=== PATIENT | female | born 1955 | race African-American/Black ===

== ENCOUNTER 2017-11-17 06:22 | Emergency (ER) | payer OTHER, SELFPAY ==
[2017-11-17 07:17] LABS: ALT (SGPT) 13 U/L (8-55); AST (SGOT) 18 U/L (5-34); Alkaline Phosphatase 123 U/L (40-150); Anion Gap 14 mmol/L (10-20); BUN (Urea Nitrogen) 9 mg/dL (9.8-20.1); Bilirubin, Total 0.4 mg/dL (0.2-1.2); Calc. Creatinine Clearance 0 mL/min (70-130); Calcium 9.6 mg/dL (7.8-10.44); Carbon Dioxide 24 mmol/L (23-31); Chloride 109 mmol/L (98-107); Estimated GFR-MDRD 62; Globulin 3.1 g/dL (2.4-3.5); Glucose 119 mg/dL (80-115); Lipase 24 U/L (8-78); Potassium 3.9 mmol/L (3.5-5.1); Protein, Total 7.1 g/dL (6.0-8.3); Sodium 143 mmol/L (136-145)
[2017-11-17 07:18] LABS: #Basophils 0.1 thou/uL (0.0-0.2); #Eosinphils 0.3 thou/uL (0.0-0.7); #Lymphocytes 1.9 thou/uL (1.20-3.40); #Monocytes 0.6 thou/uL (0.11-0.59); #Neutrophils 3.3 thou/uL (1.40-6.50); %Eosinophils 5.2 % (0.0-10.0); %Lymphocytes 30.8 % (21.0-51.0); %Monocytes 9.4 % (0.0-10.0); %Neutrophils 52.6 % (42.0-75.0); Hemoglobin 13.2 g/dL (12.0-16.0); Mean Corpuscular HGB CONC 34.5 g/dL (32.0-36.0); Mean Corpuscular Hemoglobin 25.7 pg (27.0-31.0); Mean Corpuscular Volume 74.6 fL (78.0-98.0); Platelet Count 303 thou/uL (130-400); RBC Distribution Width 13.6 % (11.5-14.5); Red Blood Cell (RBC) Count 5.15 mill/uL (4.20-5.40); White Blood Cell (WBC) Count 6.2 thou/uL (4.8-10.8)
[2017-11-17 07:19] LABS: CKMB 1.1 ng/mL (0-6.6); Troponin I Less than 0.010 ng/mL (< 0.028)
[2017-11-17 07:38] LABS: PLT Morphology Comment Appears Adequate; RBC Morphology Normal
[2017-11-17] MEDS ORDERED: Famotidine In NaCl 20 mg/50 ml Premix Bag ONE (07:40)
[2017-11-17 09:34] LABS: Troponin I Less than 0.010 ng/mL (< 0.028)
--- NOTE | 2017-11-17 20:11 | RAD ---
AP PORTABLE CHEST: 11/17/2017 0638 HOURS COMPARISON: None. FINDINGS: The heart is normal in size for the portable technique and body habitus. there is no congestive may ge or pleural effusion. The lungs are clear. Abundant bridging osteophytes are seen in the mid to u pper T-spine. Degenerative changes are seen in each AC joint, and degenerative change is present in the right glenohumeral joint. IMPRESSION: No acute thoracic finding. POS: HOME
--- NOTE | 2017-11-17 20:14 | RAD ---
PORTABLE LATERAL CHEST: 11/17/2017 0716 HOURS FINDINGS: Bridging osteophytes and ossified anterior longitudinal ligament were findings typical of diffuse idi opathic skeletal hyperostosis (DISH). No fracture or disk space narrowing is seen. IMPRESSION: Degenerative changes, as noted. POS: HOME
== END 2017-11-17 10:04 | disposition home or self-care (01) ==
LOC: BURERS 06:22
DX: R07.9 Chest pain, unspecified (principal); E03.9 Hypothyroidism, unspecified; K21.9 Gastro-esophageal reflux disease without esophagitis; E78.5 Hyperlipidemia, unspecified; I10 Essential (primary) hypertension; Z79.899 Other long term (current) drug therapy
CPT/HCPCS: 36415; 71045; 80053; 82553; 83690; 84484; 85025; 93005; 96374

== ENCOUNTER 2018-10-28 13:01 | Emergency (ER) | payer OTHER, SELFPAY | END 2018-10-28 13:28 | disposition home or self-care (01) | LOC: BURERS 13:01 | DX: M54.41 Lumbago with sciatica, right side (principal); I10 Essential (primary) hypertension; E03.9 Hypothyroidism, unspecified; E78.5 Hyperlipidemia, unspecified; Z79.899 Other long term (current) drug therapy; K21.9 Gastro-esophageal reflux disease without esophagitis | CPT/HCPCS: 99283 ==

== ENCOUNTER 2018-10-29 09:53 | Emergency (ER) | payer SELFPAY ==
[2018-10-29] MEDS ORDERED: Ibuprofen 800 MG TAB ONE (10:58)
[2018-10-29] MEDS ORDERED: HYDROcodone/Acetaminophen 10/325 mg Tablet ONE (10:58)
--- NOTE | 2018-10-29 13:30 | CT ---
CT LUMBAR SPINE: 10/29/2018 HISTORY/TECHNIQUE: A noncontrast CT was done for evaluation of back pain. FINDINGS: Multilevel degenerative disk disease is present, to some degree, at all lumbar levels. L1-L2, L3-L4, and L5-S1 seem prominently affected, but all levels are. There is some sclerosis in the inferior cordero lf of L1 that is probably secondary to the degenerative change. While there is some mild loss of mohsen dosis, I do not see any bone destructive lesion, and no compression fracture is evident. Findings by level follow: T12-L1: No acute findings. L1-L2: Abundant osteophytes, but the neural foramina seem patent. L2-L3: Abundant osteophytes. No gross neural impingement identified. Facet overgrowth and arthriti s present. L3-L4: A somewhat concentrically bulging degenerated disk with some prominent facet overgrowth and m ild ligamentous hypertrophy. There is a very slight degree of central canal stenosis. It is difficu lt to assess any possibility of neural impingement at this level. An MRI would be needed for such. L4-L5: Right foraminal narrowing due to osteophyte or disk osteophyte complex laterally. The centra l canal seems patent. L5-S1: Facet arthritis prominent. Probably no gross neural impingement. IMPRESSION: 1. Multilevel degenerative disk disease and facet changes as noted. 2. No evidence of compression fracture. POS: [facility]
== END 2018-10-29 11:03 | disposition home or self-care (01) ==
LOC: BURERS 09:53
DX: M51.36 Other intervertebral disc degeneration, lumbar region (principal); M54.41 Lumbago with sciatica, right side; I10 Essential (primary) hypertension; E78.5 Hyperlipidemia, unspecified; E03.9 Hypothyroidism, unspecified; K21.9 Gastro-esophageal reflux disease without esophagitis; Z79.899 Other long term (current) drug therapy
CPT/HCPCS: 72131

== ENCOUNTER 2018-12-14 14:46 | Emergency (ER) | payer SELFPAY ==
[2018-12-14] MEDS ORDERED: Ketorolac Tromethamine 60 MG/2 ML VIAL ONE (15:40)
[2018-12-14] MEDS ORDERED: Acetaminophen/Codeine 30-300mg Tablet ONE (15:40)
== END 2018-12-14 15:49 | disposition home or self-care (01) ==
LOC: BURERS 14:46
DX: M54.5 Low back pain (principal); E03.9 Hypothyroidism, unspecified; K21.9 Gastro-esophageal reflux disease without esophagitis; E78.5 Hyperlipidemia, unspecified; I10 Essential (primary) hypertension; Z79.899 Other long term (current) drug therapy
CPT/HCPCS: 96372; 99283; J1885

== ENCOUNTER 2019-01-20 11:14 | Outpatient (CLI) | payer MEDICARE ==
--- NOTE | 2019-01-20 17:29 | RAD ---
RIGHT HIP TWO VIEWS: 01/20/19 No fracture, dislocation, or joint space narrowing was seen. There are no obvious causes for hip pain . The adjacent pubic ring appears intact. The right SI joint was symmetrical with respect to the left . Degenerative changes are seen at the lumbosacral junction. IMPRESSION: No acute findings. POS: HOME
--- NOTE | 2019-01-20 17:31 | RAD ---
LEFT HIP TWO VIEWS: 01/20/19 No acute fracture was seen. There is no dislocation or joint space narrowing. Irregularity of the lesser trochanter suggests an old injury here. The adjacent pubic ring appears in tact. The left SI joint showed no widening. Severe degenerative changes are suggested in the lower saqib mbar spine. IMPRESSION: No acute bony finding. POS: HOME
== END 2019-01-20 11:15 | disposition home or self-care (01) ==
LOC: BURRAD 11:14
PROVIDERS: ATTEND Family Medicine
DX: M25.551 Pain in right hip (principal); M25.552 Pain in left hip

== ENCOUNTER 2020-06-14 09:29 | Outpatient (CLI) | payer MEDICARE ==
--- NOTE | 2020-06-14 11:29 | RAD ---
Exam:2 views right hip HISTORY: Pain. COMPARISON: 01/20/2019 FINDINGS: Stable mild to moderate loss of joint space height. No fractures or malalignment. Visualize d sacrum and bony pelvis are intact. There is vacuum joint phenomenon in the right SI joint. Vacuum disc phenomenon at L4-L5 and L5-S1. IMPRESSION: Chronic changes as above.
== END 2020-06-14 09:30 | disposition home or self-care (01) ==
LOC: BURRAD 09:29
PROVIDERS: ATTEND Family Medicine
DX: M25.551 Pain in right hip (principal)

== ENCOUNTER 2020-06-23 10:05 | Emergency (ER) | payer MEDICARE ==
[2020-06-23 10:42] LABS: Bilirubin Negative (Negative); Blood, Urine Trace (Negative); Clarity Clear (Clear); Glucose, Urine (Dipstick) Negative (Negative); Ketone, Urine Negative (Negative); Leukocyte Negative (Negative); Nitrite Negative (Negative); Protein, Urine (Dipstick) Negative (Neg-Trace); Urobilinogen 0.2 mg/dL (Less than 2); pH, Urine 7.5 (5.0-9.0)
[2020-06-23 10:47] LABS: Bacteria/HPF 1+ HPF (None Seen); RBC/HPF 0-3 HPF (0-3); Squamous Epithelial 0-3 HPF (0-3); WBC/HPF None Seen HPF (0-3)
== END 2020-06-23 10:53 | disposition home or self-care (01) ==
LOC: BURERS 10:05
DX: M79.10 Myalgia, unspecified site (principal); M54.6 Pain in thoracic spine; M25.511 Pain in right shoulder; M25.512 Pain in left shoulder; E78.5 Hyperlipidemia, unspecified; E03.9 Hypothyroidism, unspecified; K21.9 Gastro-esophageal reflux disease without esophagitis; I10 Essential (primary) hypertension; Z79.899 Other long term (current) drug therapy; Z79.82 Long term (current) use of aspirin; Z79.1 Long term (current) use of non-steroidal anti-inflammatories (NSAID)
CPT/HCPCS: 81003; 81015; 99283

== ENCOUNTER 2020-07-23 18:33 | Emergency (ER) | payer MEDICARE ==
[2020-07-23] MEDS ORDERED: Dicyclomine 20 MG TAB ONE (19:19)
[2020-07-23 19:25] LABS: Hemoglobin 13.3 g/dL (12.0-16.0); Mean Corpuscular HGB CONC 31.8 g/dL (32.0-36.0); Mean Corpuscular Hemoglobin 26.7 pg (27.0-31.0); Platelet Count 250 thou/uL (130-400); Red Blood Cell (RBC) Count 4.96 mill/uL (4.20-5.40); White Blood Cell (WBC) Count 6.8 thou/uL (4.8-10.8)
[2020-07-23 19:30] LABS: ALT (SGPT) 23 U/L (8-55); Albumin 3.8 g/dL (3.4-4.8); Alkaline Phosphatase 113 U/L (40-110); Anion Gap 16 mmol/L (10-20); BUN (Urea Nitrogen) 14 mg/dL (9.8-20.1); Bilirubin, Total 0.3 mg/dL (0.2-1.2); Calc. Creatinine Clearance 0 mL/min (70-130); Calcium 8.8 mg/dL (7.8-10.44); Carbon Dioxide 22 mmol/L (23-31); Chloride 109 mmol/L (98-107); Globulin 2.7 g/dL (2.4-3.5); Glucose 103 mg/dL (80-115); Potassium 4.1 mmol/L (3.5-5.1); Protein, Total 6.5 g/dL (5.8-8.1); Sodium 143 mmol/L (136-145)
[2020-07-23 19:31] LABS: Band 36 % (5-11); Lymphocytes 19 % (21-51); MDiff Complete? YES; Monocytes 17 % (0-10); Neutrophil 26 % (42-75); Reactive Lymphocytes 2 % (0-10); Toxic Granulation SLIGHT; Vacuoles SLIGHT
[2020-07-23 19:32] LABS: AST (SGOT) 33 U/L (5-34)
[2020-07-23 19:36] LABS: Bilirubin Negative (Negative); Blood, Urine Negative (Negative); Clarity Cloudy (Clear); Glucose, Urine (Dipstick) Negative (Negative); Ketone, Urine Negative (Negative); Leukocyte Negative (Negative); Nitrite Negative (Negative); Protein, Urine (Dipstick) Negative (Neg-Trace); Specific Gravity, Urine 1.015 (1.005-1.030); Urobilinogen 0.2 mg/dL (Less than 2); pH, Urine 5.5 (5.0-9.0)
== END 2020-07-23 20:45 | disposition home or self-care (01) ==
LOC: BURERS 18:33
DX: R19.7 Diarrhea, unspecified (principal); E03.9 Hypothyroidism, unspecified; K21.9 Gastro-esophageal reflux disease without esophagitis; E78.5 Hyperlipidemia, unspecified; I10 Essential (primary) hypertension; Z79.899 Other long term (current) drug therapy; Z79.82 Long term (current) use of aspirin
CPT/HCPCS: 80053; 81003; 85025; 94760

== ENCOUNTER 2021-05-22 13:42 | Outpatient (CLI) | payer MEDICARE | END 2021-05-22 13:43 | disposition home or self-care (01) | LOC: BURRAD 13:42 | PROVIDERS: ATTEND Family Medicine | DX: M17.0 Bilateral primary osteoarthritis of knee (principal) ==

== ENCOUNTER 2022-08-31 11:51 | Emergency (ER) | payer MEDICARE ==
[2022-08-31 12:11] LABS: #Eosinphils 0.2 thou/uL (0.0-0.7); #Lymphocytes 1.8 thou/uL (1.20-3.40); #Monocytes 0.6 thou/uL (0.11-0.59); #Neutrophils 3.4 thou/uL (1.40-6.50); %Basophils 0.8 % (0.0-1.0); %Eosinophils 3.5 % (0.0-10.0); %Lymphocytes 29.3 % (21.0-51.0); %Monocytes 9.4 % (0.0-10.0); Hemoglobin 13.1 g/dL (12.0-16.0); Mean Corpuscular HGB CONC 31.7 g/dL (32.0-36.0); Mean Corpuscular Hemoglobin 26.8 pg (27.0-31.0); Mean Corpuscular Volume 84.7 fl (78.0-98.0); Mean Platelet Volume 7.5 fL (7.4-10.4); Platelet Count 301 10x3/uL (130-400); RBC Distribution Width 14.8 % (11.5-14.5); Red Blood Cell (RBC) Count 4.88 mill/uL (4.20-5.40)
[2022-08-31 12:28] LABS: ALT (SGPT) 15 U/L (8-55); AST (SGOT) 18 U/L (5-34); Alkaline Phosphatase 123 U/L (40-110); Anion Gap 13 mmol/L (10-20); BUN (Urea Nitrogen) 14 mg/dL (9.8-20.1); Bilirubin, Total 0.4 mg/dL (0.2-1.2); Calc. Creatinine Clearance 0 mL/min (70-130); Calcium 9.3 mg/dL (7.8-10.44); Carbon Dioxide 24 mmol/L (23-31); Chloride 110 mmol/L (98-107); Estimated GFR 47; Glucose 98 mg/dL (80-115); Lipase 27 U/L (8-78); Potassium 3.9 mmol/L (3.5-5.1); Sodium 143 mmol/L (136-145)
== END 2022-08-31 15:12 | disposition home or self-care (01) ==
LOC: BURERS 11:51
DX: R07.9 Chest pain, unspecified (principal); I10 Essential (primary) hypertension; E03.9 Hypothyroidism, unspecified; K21.9 Gastro-esophageal reflux disease without esophagitis; E78.5 Hyperlipidemia, unspecified; Z79.899 Other long term (current) drug therapy
CPT/HCPCS: 36415; 71045; 80053; 83690; 84484; 85025; 93005